=== PATIENT | male | born 1980 | race Caucasian/White ===

== ENCOUNTER 2016-09-03 15:39 | Emergency (ER) | payer OTHER ==
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
[2016-09-03] MEDS ORDERED: PREVACID (15:45)
== END 2016-09-03 17:10 | disposition home or self-care (01) ==
LOC: SED 15:39
DX: S16.1XXA Strain of muscle, fascia and tendon at neck level, initial encounter (principal); V43.52XA Car driver injured in collision with other type car in traffic accident, initial encounter
CPT/HCPCS: 72040; 73080; 73560; 99284